=== PATIENT | female | born 1960 | race American Indian/Alaskan Native ===

== ENCOUNTER 2016-04-07 14:30 | Emergency (ER) | payer SELFPAY ==
[2016-04-08] MEDS ORDERED: CATAPRES PO ONE (02:20)
[2016-04-08] MEDS ORDERED: BENADRYL IV ONE (02:20)
[2016-04-08] MEDS ORDERED: REGLAN IV ONE (02:20)
--- NOTE | 2016-04-08 02:24 | Emergency Department Report ---
ED Headache HPI - General Chief Complaint: Headache Stated Complaint: SEVERE MIGRAINE Time Seen by Provider: 04/08/16 01:55 - History of Present Illness Initial Comments: 55F PMH migraine headaches, hypertension presents with 4 days of persistent frontal and occipital throbbing headache classic of her migraine symptoms. There is associated photophobia and light sensitivity. Patient denies any nausea vomiting no neck rigidity no fever or chills awake alert and oriented 3. Fully ambulatory without any assistance. States that she had been taking Tylenol and Motrin with minimal to no relief of her pain over the last several days. Patient had previously been on sumatriptan for migraine headache but has not had prescription in some time due to lack of current primary care doctor. States quality of headache is waxing and waning, not the worst headache of her life, gradually built in intensity not sudden onset. Denies any upper or lower extremity paresthesias no paralysis. No observable facial weakness or slurred speech during clinical injury. Patient is agitated due to headache. States she has not taken her amlodipine today. Timing/Duration: 1 week, waxing and waning Quality: moderate Recent Head Trauma: frequent headaches Associated Symptoms: denies symptoms Allergies/Adverse Reactions: Allergies No Known Allergies Allergy (Unverified 04/07/16 15:34) Home Medications: Ambulatory Orders amLODIPine [Norvasc] 10 mg PO DAILY 04/07/16 Naproxen [Naproxen TAB] 250 mg PO BID PRN #14 tablet 04/08/16 SUMAtriptan SUCCINATE [SUMAtriptan Succinate] 25 mg PO ONCE PRN #1 tablet Topiramate [Topamax] 25 mg PO BID #30 tablet 04/08/16 amLODIPine [Norvasc] 10 mg PO DAILY #30 tab 04/08/16 ED Review of Systems ROS: Stated complaint: SEVERE MIGRAINE Other details as noted in HPI Constitutional: denies: chills, fever Eyes: denies: eye pain, eye discharge, vision change ENT: denies: ear pain, throat pain Respiratory: denies: cough, shortness of breath, wheezing Cardiovascular: denies: chest pain, palpitations Endocrine: no symptoms reported Gastrointestinal: denies: abdominal pain, nausea, diarrhea Genitourinary: denies: urgency, dysuria, discharge Musculoskeletal: denies: back pain, joint swelling, arthralgia Skin: denies: rash, lesions Neurological: headache. denies: weakness, paresthesias Psychiatric: denies: anxiety, depression Hematological/Lymphatic: denies: easy bleeding, easy bruising ED Past Medical Hx - Past Medical History Hx Hypertension: Yes Hx Headaches / Migraines: Yes - Surgical History Additional Surgical History: BACK SURGERY (LYPHOMA REMOVED) - Social History Smoking Status: Never Smoker Substance Use Type: Alcohol - Medications Home Medications: Home Medications Medication Instructions Recorded Confirmed Last Taken Type amLODIPine [Norvasc] 10 mg PO DAILY 04/07/16 04/07/16 Unknown History Naproxen [Naproxen TAB] 250 mg PO BID PRN #14 tablet 04/08/16 Unknown Rx SUMAtriptan SUCCINATE [SUMAtriptan 25 mg PO ONCE PRN #1 tablet 04/08/16 Unknown Rx Succinate] Topiramate [Topamax] 25 mg PO BID #30 tablet 04/08/16 Unknown Rx amLODIPine [Norvasc] 10 mg PO DAILY #30 tab 04/08/16 Unknown Rx ED Physical Exam - General Limitations: No Limitations General appearance: alert, in no apparent distress - Head Head exam: Present: atraumatic, normocephalic - Eye Eye exam: Present: normal appearance, PERRL, EOMI - ENT ENT exam: Present: mucous membranes moist - Neck Neck exam: Present: normal inspection - Respiratory Respiratory exam: Present: normal lung sounds bilaterally. Absent: respiratory distress - Cardiovascular Cardiovascular Exam: Present: regular rate, normal rhythm. Absent: systolic murmur, diastolic murmur, rubs, gallop - GI/Abdominal GI/Abdominal exam: Present: soft, normal bowel sounds - Extremities Exam Extremities exam: Present: normal inspection - Back Exam Back exam: Present: normal inspection - Neurological Exam Neurological exam: Present: alert, oriented X3, CN II-XII intact, normal gait - Psychiatric Psychiatric exam: Present: normal affect, normal mood - Skin Skin exam: Present: warm, dry, intact, normal color. Absent: rash ED Course Vital Signs 04/07/16 04/08/16 15:35 02:40 Temperature 98.2 F Pulse Rate 85 85 Respiratory 16 Rate Blood Pressure 177/105 177/105 O2 Sat by Pulse 97 Oximetry ED Medical Decision Making - Medical Decision Making A/P: Migraine headache 1-patient experienced significant relief of headache with Reglan and Benadryl and Toradol, headache went from 10 out of 10 to less than 4 out of 10 mild now 2-we'll refer patient patient to her primary medical doctor. Patient requesting refills on her amlodipine and Topamax ( pt states her neurologist has her on topomax for migraines headache, has been taking it but ran out of prescription). 3-patient has no neurological deficit, I advised patient to return to the ED if headache worsens if she experiences neck rigidity severe photo phonophobia nausea and vomiting associated with headache or any fever or chills associated with headache. Critical care attestation.: If time is entered above; I have spent that time in minutes in the direct care of this critically ill patient, excluding procedure time. ED Disposition Clinical Impression: Migraine Qualifiers: Migraine type: without aura Status migrainosus presence: with status migrainosus Intractability: not intractable Qualified Code(s): G43.001 - Migraine without aura, not intractable, with status migrainosus Disposition: DISCHARGED TO HOME OR SELFCARE Is pt being admited?: No Does the pt Need Aspirin: No Condition: Stable Instructions: Acute Headache (ED) Prescriptions: Naproxen [Naproxen TAB] 250 mg PO BID PRN #14 tablet PRN Reason: Headache amLODIPine [Norvasc] 10 mg PO DAILY #30 tab SUMAtriptan SUCCINATE [SUMAtriptan Succinate] 25 mg PO ONCE PRN #1 tablet PRN Reason: Migraine Headache Topiramate [Topamax] 25 mg PO BID #30 tablet Referrals: AJIT SLAUGHTER MD [Primary Care Provider] - 3-5 Days [facility] [Outside] - 3-5 Days DEVIN JANSEN MD [Staff Physician] - 3-5 Days Forms: Work/School Release Form(ED) Time of Disposition: 05:10
[2016-04-08] MEDS ORDERED: TORADOL IV ONE (03:37)
[2016-04-08 05:19] VITALS: BP 143/90
== END 2016-04-08 05:14 | disposition home or self-care (01) ==
LOC: ED 14:30
DX: G43.001 Migraine without aura, not intractable, with status migrainosus (principal); I10 Essential (primary) hypertension
CPT/HCPCS: 96374; 96375; 99283; J1200; J1885; J2765

== ENCOUNTER 2018-10-07 14:49 | Emergency (ER) | payer SELFPAY ==
[2018-10-07 15:01] VITALS: BP 135/92
--- NOTE | 2018-10-07 15:57 | Emergency Department Report ---
- General Chief Complaint: Laceration/Recheck/Suture Stated Complaint: WOUND Time Seen by Provider: 10/07/18 15:51 Source: patient Mode of arrival: Ambulatory Limitations: No Limitations - History of Present Illness Initial Comments: Patient is a 57-year-old female who presents for wound check. Patient had a lipoma removed from her lower back last . She noticed that it bleed about one day ago. She just wanted to make sure to have some packing on it. Patient denies being any pain denies any fevers or chills. She states that she has no nausea or vomiting. - Related Data Home Medications Medication Instructions Recorded Confirmed Last Taken amLODIPine [Norvasc] 10 mg PO DAILY 04/07/16 04/07/16 Unknown Previous Rx's Medication Instructions Recorded Last Taken Type Naproxen [Naproxen TAB] 250 mg PO BID PRN #14 tablet 04/08/16 Unknown Rx SUMAtriptan succinate [SUMAtriptan 25 mg PO ONCE PRN #1 tablet 04/08/16 Unknown Rx Succinate] Topiramate [Topamax] 25 mg PO BID #30 tablet 04/08/16 Unknown Rx amLODIPine [Norvasc] 10 mg PO DAILY #30 tab 04/08/16 Unknown Rx Allergies Allergy/AdvReac Type Severity Reaction Status Date / Time No Known Allergies Allergy Unverified 04/07/16 15:34 ED Review of Systems ROS: Stated complaint: WOUND Other details as noted in HPI Constitutional: denies: chills, fever Eyes: denies: eye pain, eye discharge, vision change ENT: denies: ear pain, throat pain Respiratory: denies: cough, shortness of breath, wheezing Cardiovascular: denies: chest pain, palpitations Endocrine: no symptoms reported Gastrointestinal: denies: abdominal pain, nausea, diarrhea Genitourinary: denies: urgency, dysuria, discharge Musculoskeletal: denies: back pain, joint swelling, arthralgia Skin: as per HPI. denies: rash, lesions Neurological: denies: headache, weakness, paresthesias Psychiatric: denies: anxiety, depression Hematological/Lymphatic: denies: easy bleeding, easy bruising ED Past Medical Hx - Past Medical History Hx Hypertension: Yes Hx Headaches / Migraines: Yes - Surgical History Additional Surgical History: BACK SURGERY (LYPHOMA REMOVED) - Social History Smoking Status: Never Smoker - Medications Home Medications: Home Medications Medication Instructions Recorded Confirmed Last Taken Type amLODIPine [Norvasc] 10 mg PO DAILY 04/07/16 04/07/16 Unknown History Naproxen [Naproxen TAB] 250 mg PO BID PRN #14 tablet 04/08/16 Unknown Rx SUMAtriptan succinate [SUMAtriptan 25 mg PO ONCE PRN #1 tablet 04/08/16 Unknown Rx Succinate] Topiramate [Topamax] 25 mg PO BID #30 tablet 04/08/16 Unknown Rx amLODIPine [Norvasc] 10 mg PO DAILY #30 tab 04/08/16 Unknown Rx ED Physical Exam - General Limitations: No Limitations General appearance: alert, in no apparent distress - Head Head exam: Present: atraumatic, normocephalic - Eye Eye exam: Present: normal appearance - ENT ENT exam: Present: mucous membranes moist - Neck Neck exam: Present: normal inspection - Respiratory Respiratory exam: Present: normal lung sounds bilaterally. Absent: respiratory distress - Cardiovascular Cardiovascular Exam: Present: regular rate, normal rhythm. Absent: systolic murmur, diastolic murmur, rubs, gallop - GI/Abdominal GI/Abdominal exam: Present: soft, normal bowel sounds - Extremities Exam Extremities exam: Present: normal inspection - Back Exam Back exam: Present: other (lower back wound bandaged ) - Neurological Exam Neurological exam: Present: alert, oriented X3 - Psychiatric Psychiatric exam: Present: normal affect, normal mood - Skin Skin exam: Present: warm, dry, intact, normal color. Absent: rash ED Course Vital Signs 10/07/18 14:58 Temperature 97.7 F Pulse Rate 83 Respiratory 18 Rate Blood Pressure 135/92 O2 Sat by Pulse 99 Oximetry ED Medical Decision Making - Medical Decision Making Chief medical diagnosis: For Wound Check Differential Medical Diagnosis: Madonna by secondary intention, granulation tissue, lower back pain Perform wound management Management and we'll send patient home Critical care attestation.: If time is entered above; I have spent that time in minutes in the direct care of this critically ill patient, excluding procedure time. ED Disposition Clinical Impression: Visit for wound check Disposition: DC-01 TO HOME OR SELFCARE Is pt being admited?: No Does the pt Need Aspirin: No Condition: Stable Instructions: Lipoma (ED)
== END 2018-10-07 16:20 | disposition home or self-care (01) ==
LOC: ED 14:49
DX: Z48.00 Encounter for change or removal of nonsurgical wound dressing (principal); Z53.21 Procedure and treatment not carried out due to patient leaving prior to being seen by health care provider